=== PATIENT | male | born 1985 | race Caucasian/White ===

== ENCOUNTER 2017-10-20 15:39 | Emergency (ER) | payer OTHER ==
[~2017-10-20] VITALS: Ht 180.3 cm; Wt 97.5 kg
[~2017-10-20 15:39] MED LIST: FIORICET 50-301 EACH PO; FLEXERIL PO; IBUPROFEN 800800 M1 PO; IMITREX100 MG PO; NAPROSYN500 MG PO; NOHOMEMEDICATIONS; NORCO 5-325 TA1 EACH PO; TOPAMAX 25 MG T25 MG PO
[2017-10-20] MEDS ORDERED: CYCLOBENZAPRINE10 MG PO (17:06)
[2017-10-20] MEDS ORDERED: IBUPROFEN 800800 MG PO (17:06)
[2017-10-20 17:43] VITALS: BP 130/88
== END 2017-10-20 17:44 | disposition home or self-care (01) ==
LOC: M.ERS 15:39
DX: S29.012A Strain of muscle and tendon of back wall of thorax, initial encounter (principal); Z88.0 Allergy status to penicillin; V43.52XA Car driver injured in collision with other type car in traffic accident, initial encounter; Y93.I9 Activity, other involving external motion; Y92.89 Other specified places as the place of occurrence of the external cause; Y99.8 Other external cause status

== ENCOUNTER 2018-09-21 13:42 | Emergency (ER) | payer OTHER ==
[~2018-09-21] VITALS: Ht 180.3 cm; Wt 97.5 kg
[~2018-09-21 13:42] MED LIST changes: +CYCLOBENZAPRINE10 MG PO; +IBUPROFEN 800800 MG PO
[2018-09-21] MEDS ORDERED: NABUMETONE 750750 M1 PO (15:09)
[2018-09-21 15:25] VITALS: BP 105/68
== END 2018-09-21 15:26 | disposition home or self-care (01) ==
LOC: M.ERS 13:42
DX: M25.562 Pain in left knee (principal); R60.0 Localized edema; Z88.0 Allergy status to penicillin

== ENCOUNTER 2019-02-03 08:30 | Emergency (ER) | payer OTHER ==
[~2019-02-03] VITALS: Ht 180.3 cm; Wt 97.5 kg
[~2019-02-03 08:30] MED LIST changes: +NABUMETONE 750750 M1 PO
[2019-02-03] MEDS ORDERED: WELLBUTRIN XL300 MG PO (08:41)
[2019-02-03 09:21] LABS: ABSOLUTE EOSINOPHILS 0.1 thou/uL (0.0-0.7); ABSOLUTE LYMPHOCYTES 1.6 thou/uL (0.8-5.3); ABSOLUTE MONOCYTES 0.4 thou/uL (0.0-1.2); BASOPHILS 0.7 %; HEMATOCRIT 45.7 % (42.0-52.0); HEMOGLOBIN 15.2 gm/dL (14.0-18.0); LYMPHOCYTES 32.1 %; MCH 29.1 pg (26.0-34.0); MCHC 33.4 g/dL (28.0-37.0); MCV 87.3 fL (80.0-100.0); MONOCYTES 7.1 %; NUCLEATED RBCS 0 /100WBC; PLATELET COUNT* 239 thou/uL (150-400); POLYS 59.1 %; RBC 5.23 mil/uL (4.50-6.00); RDW-CV 13.3 % (10.5-14.5); WBC 5.1 thou/uL (4.0-11.0)
[2019-02-03 09:27] LABS: CALCIUM 9.3 mg/dL (8.5-10.1); CREATININE 0.9 mg/dL (0.6-1.3); POTASSIUM 4.4 mmol/L (3.5-5.1)
[2019-02-03 09:32] LABS: ALBUMIN 4.1 g/dL (3.4-5.0); TOTAL BILIRUBIN 0.3 mg/dL (<0.1-1.0); TOTAL PROTEIN 7.7 g/dL (6.4-8.2)
[2019-02-03] MEDS ORDERED: ATIVAN1 MG PO (09:54)
[2019-02-03 10:10] VITALS: BP 116/79
== END 2019-02-03 10:11 | disposition home or self-care (01) ==
LOC: M.ERS 08:30
PROVIDERS: Personal Emergency Response Attendant
DX: R25.1 Tremor, unspecified (principal); G43.909 Migraine, unspecified, not intractable, without status migrainosus; Z88.0 Allergy status to penicillin

== ENCOUNTER 2019-02-05 20:51 | Emergency (ER) | payer OTHER ==
[~2019-02-05] VITALS: Ht 180.3 cm; Wt 99.8 kg
[~2019-02-05 20:51] MED LIST changes: +ATIVAN1 MG PO; +WELLBUTRIN XL300 MG PO
[2019-02-05 21:40] LABS: ABSOLUTE EOSINOPHILS 0.1 thou/uL (0.0-0.7); ABSOLUTE LYMPHOCYTES 1.9 thou/uL (0.8-5.3); ABSOLUTE MONOCYTES 0.4 thou/uL (0.0-1.2); ABSOLUTE NEUTROPHILS 2.7 thou/uL (1.6-8.1); BASOPHILS 0.8 %; EOSINOPHILS 1.5 %; LYMPHOCYTES 37.5 %; MCH 29.7 pg (26.0-34.0); MCHC 34.1 g/dL (28.0-37.0); MCV 87.3 fL (80.0-100.0); MONOCYTES 7.8 %; NUCLEATED RBCS 0 /100WBC; PLATELET COUNT* 226 thou/uL (150-400); POLYS 52.4 %; RBC 5.04 mil/uL (4.50-6.00); RDW-CV 13.7 % (10.5-14.5); WBC 5.2 thou/uL (4.0-11.0)
[2019-02-05 21:44] LABS: POTASSIUM 3.5 mmol/L (3.5-5.1)
[2019-02-05 21:48] LABS: TOTAL BILIRUBIN 0.4 mg/dL (<0.1-1.0); TOTAL PROTEIN 7.5 g/dL (6.4-8.2)
[2019-02-05] MEDS ORDERED: ATIVAN1 MG PO (22:34)
[2019-02-05 22:47] VITALS: BP 101/70
== END 2019-02-05 22:48 | disposition home or self-care (01) ==
LOC: M.ERS 20:51
PROVIDERS: Family Medicine
DX: F41.9 Anxiety disorder, unspecified (principal); G43.909 Migraine, unspecified, not intractable, without status migrainosus; Z88.0 Allergy status to penicillin

== ENCOUNTER → 2019-02-11 | Outpatient (CLI) | payer OTHER | LOC: M.MRI 14:18 | DX: R25.1 Tremor, unspecified (principal); Z88.0 Allergy status to penicillin ==

== ENCOUNTER → 2019-02-15 | Outpatient (CLI) | payer OTHER | LOC: M.LAB 15:55 | DX: F41.9 Anxiety disorder, unspecified (principal); G43.919 Migraine, unspecified, intractable, without status migrainosus; R25.1 Tremor, unspecified ==

== ENCOUNTER → 2019-02-24 | Outpatient (CLI) | payer OTHER ==
--- NOTE | ~2019-02-24 | EEG ---
[address] [address] EEG STUDY REPORT Name: CARLOS FLORES [id number] Admission: 02/24/19 Attend Phys: Efrain Wyman MD Discharge: Date of : 89 Report #: [id number] THIS REPORT FOR: //name// CC: Laina Wyman DATE OF SERVICE: 02/24/2019 This patient is having migraine and tremors. The EEG is being done to further evaluate that. EEG was done by placing the electrodes by standard 10-20 system of electrode placement. Both referential and sequential montages were used for recording. Background activity in this patient's EEG is about 9 Hz and 30 microvolt. It is a symmetrical activity. Photic stimulation was unremarkable. The patient became drowsy and that is associated with bilateral slowing and vertex sharp waves. Throughout the record, no active epileptiform activity was noticed. IMPRESSION: This patient's EEG is unremarkable. Thank you very much for this referral. By: [id number] Wyman MD /nt
== END ==
LOC: M.CRD 14:00
DX: G43.919 Migraine, unspecified, intractable, without status migrainosus (principal); R25.1 Tremor, unspecified; F41.9 Anxiety disorder, unspecified

== ENCOUNTER 2019-04-25 18:14 | Emergency (ER) | payer OTHER ==
[~2019-04-25] VITALS: Ht 180.3 cm; Wt 97.5 kg
[~2019-04-25 18:14] MED LIST changes: +ACETAMINOPHEN-1 EAC1 PO; +BUTALB-APAP-CA1 EACH PO; +IMITREX 25 MG T25 M1 PO; +MEDROLDOSEPACK PO
[2019-04-25] MEDS ORDERED: MOBIC7.5 MG PO (21:23)
[2019-04-25 21:35] VITALS: BP 108/79
== END 2019-04-25 21:35 | disposition home or self-care (01) ==
LOC: M.ERS 18:14
DX: M54.5 Low back pain (principal); M25.552 Pain in left hip; G43.909 Migraine, unspecified, not intractable, without status migrainosus; Z88.0 Allergy status to penicillin

== ENCOUNTER 2019-06-13 18:24 | Inpatient (IN) | payer OTHER ==
[~2019-06-13] VITALS: Ht 180.3 cm; Wt 104.8 kg
[~2019-06-13 18:24] MED LIST changes: +MOBIC7.5 MG PO
[2019-06-13 18:34] VITALS: BP 113/82
[2019-06-13 19:25] LABS: ABSOLUTE EOSINOPHILS 0.1 thou/uL (0.0-0.7); ABSOLUTE LYMPHOCYTES 1.7 thou/uL (0.8-5.3); ABSOLUTE MONOCYTES 0.4 thou/uL (0.0-1.2); ABSOLUTE NEUTROPHILS 2.8 thou/uL (1.6-8.1); BASOPHILS 0.5 %; EOSINOPHILS 1.1 %; HEMATOCRIT 42.5 % (42.0-52.0); HEMOGLOBIN 14.6 gm/dL (14.0-18.0); LYMPHOCYTES 34.9 %; MCH 29.6 pg (26.0-34.0); MCHC 34.3 g/dL (28.0-37.0); MCV 86.4 fL (80.0-100.0); MONOCYTES 7.6 %; MPV 8.7 fl. (7.2-11.1); NUCLEATED RBCS 0 /100WBC; PLATELET COUNT* 252 thou/uL (150-400); POLYS 55.9 %; RBC 4.92 mil/uL (4.50-6.00); RDW-CV 13.5 % (10.5-14.5); WBC 4.9 thou/uL (4.0-11.0)
[2019-06-13 19:31] LABS: ANION GAP 10 mmol/L (7-16); BUN 8 mg/dL (7-18); CALCIUM 8.7 mg/dL (8.5-10.1); CHLORIDE 104 mmol/L (98-107); CO2 25 mmol/L (21-32); CREATININE 0.9 mg/dL (0.6-1.3); GLUCOSE 91 mg/dL (70-99); POTASSIUM 3.6 mmol/L (3.5-5.1); SODIUM 139 mmol/L (136-145)
[2019-06-13 19:40] LABS: ALBUMIN 3.8 g/dL (3.4-5.0); ALKALINE PHOSPHATASE 77 U/L (46-116); SGOT 22 U/L (15-37); SGPT 37 U/L (30-65); TOTAL BILIRUBIN 0.4 mg/dL (<0.1-1.0); TOTAL PROTEIN 7.2 g/dL (6.4-8.2); TROPONIN-I LEVEL <0.06 ng/mL (<0.06)
[2019-06-13 20:12] LABS: APTT 26.6 Seconds (25.0-31.3); PROTIME 10.7 Seconds (9.20-11.50)
[2019-06-13 22:01] VITALS: BP 117/69
[2019-06-13 22:20] VITALS: BP 115/68
[2019-06-13 22:24] LABS: URINE BILIRUBIN NEGATIVE (Negative); URINE BLOOD NEGATIVE (Negative); URINE CLARITY CLEAR; URINE COLOR YELLOW; URINE GLUCOSE-RANDOM NEGATIVE (Negative); URINE KETONES NEGATIVE (Negative); URINE LEUKOCYTES-REFLEX NEGATIVE (Negative); URINE NITRITE-REFLEX NEGATIVE (Negative); URINE PROTEIN NEGATIVE (Negative); URINE SPECIFIC GRAVITY <= 1.005 (1.005-1.030); URINE UROBILINOGEN 0.2 E.U./dl (0.2-1.0)
[2019-06-13 22:31] LABS: AMP/METHAMP Negative (Negative); BARBITURATES Negative (Negative); BENZODIAZEPINES Negative (Negative); COCAINE Negative (Negative); METHADONE Negative (Negative); OPIATES Negative (Negative); PCP Negative (Negative); THC Negative (Negative)
[2019-06-14] VITALS: BP 116/69
[2019-06-14 04:00] VITALS: BP 102/61
[2019-06-14 07:30] VITALS: BP 112/70
[2019-06-14 12:26] VITALS: BP 127/79
[2019-06-14 16:04] VITALS: BP 108/60
--- NOTE | 2019-06-14 17:07 | EKG ---
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 : 1985 Requested By: Eleuterio Fitch Order Number: [id number] MD: Meliton Powell Measurements Intervals [place] Rate: 65 P: 22 [place]: 173 QRS: 34 QRSD: 87 T: 24 QT: 386 QTc: 402 Interpretive Statements Sinus rhythm Baseline wander in lead(s) V5,V6 No previous ECG available for comparison Electronically Signed On 06-14-2019 17:06:57 CDT by Meliton Powell [email or web address] <ELECTRONICALLY SIGNED> By: Meliton Powell MD, [facility] 06/14/19 170 01 01 Meliton Powell MD, [facility] /EPI
--- NOTE | 2019-06-14 17:07 | EKG ---
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
[2019-06-14 20:00] VITALS: BP 108/71
[2019-06-15] VITALS: BP 94/65
[2019-06-15 04:00] VITALS: BP 100/62
[2019-06-15 05:35] LABS: ABSOLUTE EOSINOPHILS 0.1 thou/uL (0.0-0.7); ABSOLUTE MONOCYTES 0.4 thou/uL (0.0-1.2); ABSOLUTE NEUTROPHILS 2.7 thou/uL (1.6-8.1); BASOPHILS 0.4 %; EOSINOPHILS 1.9 %; HEMOGLOBIN 13.7 gm/dL (14.0-18.0); LYMPHOCYTES 38.3 %; MCH 29.9 pg (26.0-34.0); MCHC 34.3 g/dL (28.0-37.0); MCV 87.1 fL (80.0-100.0); MONOCYTES 7.7 %; MPV 9.4 fl. (7.2-11.1); NUCLEATED RBCS 0 /100WBC; PLATELET COUNT* 223 thou/uL (150-400); POLYS 51.7 %; RBC 4.59 mil/uL (4.50-6.00); RDW-CV 13.5 % (10.5-14.5); WBC 5.1 thou/uL (4.0-11.0)
[2019-06-15 06:20] LABS: ALBUMIN 3.5 g/dL (3.4-5.0); CALCIUM 8.8 mg/dL (8.5-10.1); TOTAL BILIRUBIN 0.3 mg/dL (<0.1-1.0); TOTAL PROTEIN 6.6 g/dL (6.4-8.2)
[2019-06-15 08:00] VITALS: BP 111/69
[2019-06-15 11:39] VITALS: BP 101/61
[2019-06-15] MEDS ORDERED: LEVAQUIN 500 M500 M2 PO (13:44)
[2019-06-15] MEDS ORDERED: COLACE100 MG PO (13:45)
[2019-06-15] MEDS ORDERED: MIRALAX17 GM PO (13:45)
[2019-06-15 13:54] VITALS: BP 101/61
== END 2019-06-15 14:30 | disposition home or self-care (01) | DRG 195 ==
LOC: M.ERS 18:24 → M.2W 21:28 → M.TBA-ER 21:28 → M.2W 21:54
PROVIDERS: Family Medicine; Personal Emergency Response Attendant; Physician Assistant; ADMIT Internal Medicine
DX: J18.0 Bronchopneumonia, unspecified organism (principal); G43.909 Migraine, unspecified, not intractable, without status migrainosus; K56.41 Fecal impaction; E66.01 Morbid (severe) obesity due to excess calories; Z53.21 Procedure and treatment not carried out due to patient leaving prior to being seen by health care provider; Z88.8 Allergy status to other drugs, medicaments and biological substances; Z88.0 Allergy status to penicillin; Z68.32 Body mass index [BMI] 32.0-32.9, adult

== ENCOUNTER → 2019-10-20 | Outpatient (CLI) | payer OTHER ==
[~2019-10-20] MED LIST changes: +COLACE100 MG PO; +LEVAQUIN 500 M500 M2 PO; +MIRALAX17 GM PO
== END ==
LOC: M.MRI 15:47
DX: M25.562 Pain in left knee (principal); G89.29 Other chronic pain

== ENCOUNTER 2020-07-20 16:03 | Observation (INO) | payer OTHER ==
[~2020-07-20] VITALS: Ht 180.3 cm; Wt 108.6 kg
[2020-07-20 16:07] VITALS: BP 124/85
[2020-07-20 17:04] LABS: ABSOLUTE LYMPHOCYTES 1.4 thou/uL (0.8-5.3); ABSOLUTE MONOCYTES 0.3 thou/uL (0.0-1.2); ABSOLUTE NEUTROPHILS 2.8 thou/uL (1.6-8.1); BASOPHILS 0.4 %; HEMATOCRIT 44.7 % (42.0-52.0); HEMOGLOBIN 14.9 gm/dL (14.0-18.0); LYMPHOCYTES 31.4 %; MCH 29.1 pg (26.0-34.0); MCHC 33.4 g/dL (28.0-37.0); MCV 87.1 fL (80.0-100.0); MONOCYTES 6.8 %; MPV 8.5 fl. (7.2-11.1); NUCLEATED RBCS 0 /100WBC; PLATELET COUNT* 225 thou/uL (150-400); POLYS 60.4 %; RBC 5.13 mil/uL (4.50-6.00); RDW-CV 13.5 % (10.5-14.5); WBC 4.6 thou/uL (4.0-11.0)
[2020-07-20 17:11] LABS: CALCIUM 8.8 mg/dL (8.5-10.1)
[2020-07-20 17:22] LABS: MAGNESIUM 1.9 mg/dL (1.8-2.4); TOTAL BILIRUBIN 0.4 mg/dL (<0.1-1.0); TOTAL PROTEIN 7.8 g/dL (6.4-8.2)
[2020-07-20 19:45] VITALS: BP 115/56
[2020-07-21] VITALS: BP 92/46
[2020-07-21 04:00] VITALS: BP 92/56
--- NOTE | 2020-07-21 04:50 | NUR ---
PATIENT ARRIVED ON UNIT AT APPROX 194. PATIENT ALERT AND ORIENTED TIMES FOUR. MINOR COMPLAINTS OF A HEADACHE. ORAL MEDS GIVEN. UP AD STELLA. NPO SINCE 0000. DRIER TENDER NAPHTHALENE AND HOURLY ROUNDING VCOMPLETED CHARTED.
[2020-07-21 07:55] VITALS: BP 92/65
[2020-07-21] MEDS ORDERED: AZITHROMYCIN 2250 MG PO (08:02)
[2020-07-21] MEDS ORDERED: OMEPRAZOLE40 MG PO (08:02)
[2020-07-21 08:05] LABS: CHOLESTEROL 121 mg/dL (<200); HDL CHOLESTEROL 22 mg/dL (>40); LDL CHOLESTEROL 68 mg/dL (<100); TC:HDL 5.5 Ratio (Not establshd); TRIGLYCERIDE 156 mg/dL (<150); VLDL 31 mg/dL (<40)
[2020-07-21 08:20] LABS: SERUM ASSESSMENT Clear
[2020-07-21 12:00] VITALS: BP 112/64
[2020-07-21 13:53] VITALS: BP 112/64
--- NOTE | 2020-07-21 14:50 | 2DMMODE ---
[place] [address] 2 D/M-MODE ECHOCARDIOGRAM Name: CARLOS FLORES Room: [address] Juan#: [id number] Admission: 07/20/20 Attend Phys: Rome Gusman, Discharge: Date of : 89 Date of Service: 07/21/20 1450 Report #: [id number] THIS REPORT FOR: cc: Laina Bishop Maggie M. DO Holkins, John M. MD [facility] ~ APPROVED REPORT Study performed: 07/21/2020 11:37:07 EXAM: Comprehensive 2D, Doppler, and color-flow Echocardiogram Patient Location: Bedside BSA: 2.27 HR: 65 bpm BP: 92/65 mmHg Other Information Study Quality: Good Indications Abnormal ECG Chest Pain 2D Dimensions IVSd: 13.56 (7-11mm) LVOT Diam: 18.37 (18-24mm) LVDd: 41.04 mm PWd: 11.10 (7-11mm) Ascending Ao: 25.74 (22-36mm) LVDs: 27.28 (25-40mm) Aortic Root: 28.99 mm Volumes Left Atrial Volume (Systole) LA ESV Index: 15.00 mL/m2 Aortic Valve AoV Peak Esvin.: 0.98 m/s AO Peak Gr.: 3.86 mmHg LVOT Max P.31 mmHg AO Mean Gr.: 2.28 mmHg LVOT Mean P.03 mmHg LVOT Max V: 0.76 m/s AO V2 VTI: 20.47 cm LVOT Mean V: 0.46 m/s TEZ (VTI): 2.05 cm2 LVOT V1 VTI: 15.83 [place] [address] 2 D/M-MODE ECHOCARDIOGRAM Name: CARLOS FLORES Room: [address]#: [id number] Admission: 07/20/20 Attend Phys: Rome Gusman, Discharge: Date of : 89 Date of Service: 07/21/20 1450 Report #: [id number] E/A Ratio: 1.54 MV Decel. Time: 238.27 ms MV E Max Esvin.: 0.54 m/s MV PHT: 69.10 ms MVA (PHT): 3.18 cm2 TDI E/Lateral E': 4.50 E/Medial E': 4.91 Medial E' Esvin.: 0.11 m/s Lateral E' Esvin.: 0.12 m/s Pulmonary Valve PV Peak Esvin.: 0.88 m/s PV Peak Gr.: 3.13 mmHg Tricuspid Valve RAP Estimate: 5.00 mmHg TR Peak Gr.: 19.53 mmHg RVSP: 24.53 mmHg PA Pressure: 24.53 mmHg Left Ventricle The left ventricle is normal size. There is normal LV segmental wall motion. There is normal left ventricular wall thickness. Left ventricular systolic function is normal. The left ventricular ejection fraction is within the normal range. LVEF is 55-60%. The left ventricular diastolic function is normal. Right Ventricle The right ventricle is normal size. The right ventricular systolic function is normal. Atria The left atrium size is normal. The right atrium size is normal. Aortic Valve The aortic valve is normal in structure. No aortic regurgitation is present. There is no aortic valvular stenosis. Mitral Valve The mitral valve is normal in structure. There is no mitral valve regurgitation noted. No evidence of mitral valve stenosis. Tricuspid Valve The tricuspid valve is normal in structure. Trace [place]icuspid [place] [address] 2 D/M-MODE ECHOCARDIOGRAM Name: CARLOS FLORES Room: [address]#: [id number] Admission: 07/20/20 Attend Phys: Rome Gusman, Discharge: Date of : 89 Date of Service: 07/21/20 1450 Report #: [id number] Pulmonic Valve The pulmonary valve is normal in structure. There is no pulmonic valvular regurgitation. Great Vessels The aortic root is normal in size. IVC is not visualized. Pericardium There is no pericardial effusion. <Conclusion> The left ventricle is normal size. There is normal left ventricular wall thickness. Left ventricular systolic function is normal. The left ventricular ejection fraction is within the normal range. LVEF is 55-60%. The left ventricular diastolic function is normal. The right ventricle is normal size. The left atrium size is normal. The aortic valve is normal in structure. The mitral valve is normal in structure. The tricuspid valve is normal in structure. There is no pericardial effusion. There is normal LV segmental wall motion. <ELECTRONICALLY SIGNED> By: Andrew Vallecillo MD, FACC 07/21/20 1450 1450 1450 Andrew Vallecillo MD, FACC /INF
--- NOTE | 2020-07-21 15:08 | EKG ---
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 : 1985 Requested By: Bautista Pina Order Number: [id number] Jodi MD: Andrew Vallecillo Measurements Intervals [place] Rate: 71 P: 20 [place]: 162 QRS: 21 QRSD: 92 T: 17 QT: 377 QTc: 410 Interpretive Statements Sinus rhythm Nonspecific T abnormalities, anterior leads consider ischemia Baseline wander in lead(s) I,III,aVR,aVL,aVF Compared to ECG 06/13/2019 19:36:58 T-wave abnormality now present Sinus bradycardia no longer present Electronically Signed On 07-21-2020 15:08:30 CDT by Andrew Vallecillo [email or web address] <ELECTRONICALLY SIGNED> By: Andrew Vallecillo MD, FACC 07/21/20 1508 11 11 Andrew Vallecillo MD, [facility] /EPI
--- NOTE | 2020-07-21 15:09 | EKG ---
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 : 1985 Requested By: Bautista Pina Order Number: [id number] MD: Andrew Vallecillo Measurements Intervals [place] Rate: 58 P: 9 [place]: 162 QRS: 7 QRSD: 91 T: 24 QT: 408 QTc: 401 Interpretive Statements Sinus rhythm Baseline wander in lead(s) I,II,aVR,aVF Compared to ECG 06/13/2019 19:36:58 Sinus bradycardia no longer present ST (T wave) deviation no longer present Electronically Signed On 07-21-2020 15:09:08 CDT by Andrew Vallecillo [email or web address] <ELECTRONICALLY SIGNED> By: Andrew Vallecillo MD, FACC 07/21/20 1509 1733 173 Andrew Vallecillo MD, FAC /EPI
--- NOTE | 2020-07-21 15:19 | NUR ---
ASSUMED CARE OF PT APPROX 0730. REASSESMENT COMPLETED CHARTED. MEDICATIONS GIVEN CHARTED. HOURLY ROUNDING. DISCUSSED PLAN FOR DISCHARGE WITH CARDIOLOGY. PT DISCHARGE TEACHING COMPLETED, PT VERBALIZED UNDERSTANDING. PT TAKEN TO VEHICLE BY STAFF.
== END 2020-07-21 15:10 | disposition home or self-care (01) ==
LOC: M.ERS 16:03 → M.2W 18:07 → M.TBA-ER 18:07 → M.2W 19:32
PROVIDERS: Emergency Medicine Emergency Medical Services; ADMIT Internal Medicine; ATTEND Internal Medicine
DX: R00.1 Bradycardia, unspecified (principal); R07.89 Other chest pain; G43.909 Migraine, unspecified, not intractable, without status migrainosus; E66.9 Obesity, unspecified; Z68.33 Body mass index [BMI] 33.0-33.9, adult; K21.9 Gastro-esophageal reflux disease without esophagitis; Z20.828 Contact with and (suspected) exposure to other viral communicable diseases; Z79.82 Long term (current) use of aspirin; Z79.899 Other long term (current) drug therapy

== ENCOUNTER → 2020-08-04 | Outpatient (CLI) | payer OTHER ==
[~2020-08-04] MED LIST changes: +AZITHROMYCIN 2250 MG PO; +OMEPRAZOLE40 MG PO
== END ==
LOC: M.ULTRA 08:49
PROVIDERS: ATTEND Family Medicine
DX: R10.11 Right upper quadrant pain (principal); K76.0 Fatty (change of) liver, not elsewhere classified

== ENCOUNTER → 2020-08-10 | Outpatient (CLI) | payer OTHER | LOC: M.NUC 07:05 | PROVIDERS: ATTEND Family Medicine | DX: K76.0 Fatty (change of) liver, not elsewhere classified (principal); K82.0 Obstruction of gallbladder ==

== ENCOUNTER 2020-10-17 18:57 | Emergency (ER) | payer OTHER ==
[~2020-10-17] VITALS: Ht 180.3 cm; Wt 97.5 kg
[2020-10-17 19:31] LABS: ABSOLUTE LYMPHOCYTES 1.6 thou/uL (0.8-5.3); ABSOLUTE MONOCYTES 0.4 thou/uL (0.0-1.2); ABSOLUTE NEUTROPHILS 3.1 thou/uL (1.6-8.1); BASOPHILS 0.4 %; EOSINOPHILS 0.4 %; HEMATOCRIT 45.4 % (42.0-52.0); HEMOGLOBIN 15.4 gm/dL (14.0-18.0); LYMPHOCYTES 30.9 %; MCH 29.5 pg (26.0-34.0); MCV 86.9 fL (80.0-100.0); MONOCYTES 7.8 %; MPV 8.5 fl. (7.2-11.1); NUCLEATED RBCS 0 /100WBC; PLATELET COUNT* 237 thou/uL (150-400); POLYS 60.5 %; RBC 5.22 mil/uL (4.50-6.00); WBC 5.1 thou/uL (4.0-11.0)
[2020-10-17 19:36] LABS: CALCIUM 9.1 mg/dL (8.5-10.1); POTASSIUM 3.7 mmol/L (3.5-5.1)
[2020-10-17 19:41] LABS: ALBUMIN 4.1 g/dL (3.4-5.0); TOTAL BILIRUBIN 0.5 mg/dL (<0.1-1.0); TOTAL PROTEIN 7.6 g/dL (6.4-8.2)
[2020-10-17] MEDS ORDERED: MEDROLDOSEPACK PO (20:20)
[2020-10-17 20:27] VITALS: BP 122/68
== END 2020-10-17 20:27 | disposition home or self-care (01) ==
LOC: M.ERS 18:57
PROVIDERS: Nurse Practitioner Family
DX: H92.02 Otalgia, left ear (principal); E66.9 Obesity, unspecified; G43.909 Migraine, unspecified, not intractable, without status migrainosus; Z88.6 Allergy status to analgesic agent; Z88.0 Allergy status to penicillin; Z88.5 Allergy status to narcotic agent; Z79.2 Long term (current) use of antibiotics; Z79.899 Other long term (current) drug therapy

== ENCOUNTER 2020-12-23 19:12 | Emergency (ER) | payer OTHER ==
[~2020-12-23] VITALS: Ht 180.3 cm; Wt 97.5 kg
[2020-12-23] MEDS ORDERED: AMITRIPTYLINE H50 M2 PO (19:28)
[2020-12-23] MEDS ORDERED: ZOLOFT50 M1 PO (19:29)
[2020-12-23] MEDS ORDERED: IBUPROFEN 600600 M1 PO (20:04)
[2020-12-23] MEDS ORDERED: APAP W/CODEINE1 TA2 PO (20:04)
[2020-12-23 20:26] VITALS: BP 133/80
== END 2020-12-23 20:26 | disposition home or self-care (01) ==
LOC: M.ERS 19:12
DX: M79.672 Pain in left foot (principal); G43.909 Migraine, unspecified, not intractable, without status migrainosus; E66.9 Obesity, unspecified; Z68.30 Body mass index [BMI] 30.0-30.9, adult

== ENCOUNTER 2021-01-23 18:32 | Emergency (ER) | payer OTHER ==
[~2021-01-23] VITALS: Ht 180.3 cm; Wt 104.3 kg
[~2021-01-23 18:32] MED LIST changes: +AMITRIPTYLINE H50 M2 PO; +APAP W/CODEINE1 TA2 PO; +IBUPROFEN 600600 M1 PO; +ZOLOFT50 M1 PO
[2021-01-23] MEDS ORDERED: IMITREX 25 MG T25 M1 PO (18:44)
[2021-01-23] MEDS ORDERED: IBUPROFEN 800800 M1 PO (20:03)
[2021-01-23] MEDS ORDERED: FLEXERIL PO (20:03)
[2021-01-23] MEDS ORDERED: NORCO5 PO (20:03)
[2021-01-23 20:31] VITALS: BP 124/84
== END 2021-01-23 20:32 | disposition home or self-care (01) ==
LOC: M.ERS 18:32
DX: S93.401A Sprain of unspecified ligament of right ankle, initial encounter (principal); S70.02XA Contusion of left hip, initial encounter; S70.01XA Contusion of right hip, initial encounter; S80.11XA Contusion of right lower leg, initial encounter; S39.82XA Other specified injuries of lower back, initial encounter; K56.41 Fecal impaction; G43.909 Migraine, unspecified, not intractable, without status migrainosus; E66.9 Obesity, unspecified; Z88.6 Allergy status to analgesic agent; Z88.0 Allergy status to penicillin; Z88.5 Allergy status to narcotic agent; Z79.899 Other long term (current) drug therapy; W10.8XXA Fall (on) (from) other stairs and steps, initial encounter; Y93.01 Activity, walking, marching and hiking; Y92.89 Other specified places as the place of occurrence of the external cause; Y99.9 Unspecified external cause status

== ENCOUNTER 2021-01-29 17:58 | Emergency (ER) | payer OTHER ==
[~2021-01-29] VITALS: Ht 180.3 cm; Wt 97.5 kg
[~2021-01-29 17:58] MED LIST changes: +NORCO5 PO
[2021-01-29] MEDS ORDERED: MEDROLDOSEPACK PO (20:10)
[2021-01-29] MEDS ORDERED: NORCO5 PO (20:10)
[2021-01-29 20:45] VITALS: BP 106/63
== END 2021-01-29 20:45 | disposition home or self-care (01) ==
LOC: M.ERS 17:58
DX: M51.36 Other intervertebral disc degeneration, lumbar region (principal); G43.909 Migraine, unspecified, not intractable, without status migrainosus; E66.9 Obesity, unspecified; Z68.30 Body mass index [BMI] 30.0-30.9, adult; Z88.5 Allergy status to narcotic agent; Z88.0 Allergy status to penicillin

== ENCOUNTER → 2021-02-12 | Outpatient (CLI) | payer OTHER | LOC: M.MRI 11:08 | PROVIDERS: ATTEND Family Medicine | DX: M51.26 Other intervertebral disc displacement, lumbar region (principal); M51.37 Other intervertebral disc degeneration, lumbosacral region ==

== ENCOUNTER → 2021-03-07 | Outpatient (CLI) | payer OTHER ==
[~2021-03-07] MED LIST changes: +HYDROCODON-ACE1 EAC7 PO; +INDOMETHACIN 2525 MG PO; +MELOXICAM15 MG PO; +ZOLOFT100 MG PO; -ZOLOFT50 M1 PO
== END ==
LOC: M.PC 09:28
PROVIDERS: ATTEND Physical Medicine & Rehabilitation
DX: M51.17 Intervertebral disc disorders with radiculopathy, lumbosacral region (principal); M48.07 Spinal stenosis, lumbosacral region; M79.661 Pain in right lower leg; M79.662 Pain in left lower leg; M47.27 Other spondylosis with radiculopathy, lumbosacral region; Z79.891 Long term (current) use of opiate analgesic; Z79.899 Other long term (current) drug therapy

== ENCOUNTER 2021-03-09 19:22 | Emergency (ER) | payer OTHER ==
[~2021-03-09] VITALS: Ht 180.3 cm; Wt 97.5 kg
[~2021-03-09 19:22] MED LIST changes: -INDOMETHACIN 2525 MG PO
[2021-03-09] MEDS ORDERED: MEDROLDOSEPACK PO (21:06)
[2021-03-09] MEDS ORDERED: INDOMETHACIN 2525 MG PO (21:06)
[2021-03-09 22:30] VITALS: BP 108/67
== END 2021-03-09 22:31 | disposition home or self-care (01) ==
LOC: M.ERS 19:22
DX: M54.5 Low back pain (principal); G43.909 Migraine, unspecified, not intractable, without status migrainosus; E66.9 Obesity, unspecified; Z88.5 Allergy status to narcotic agent; Z88.0 Allergy status to penicillin; Z88.8 Allergy status to other drugs, medicaments and biological substances; Z68.30 Body mass index [BMI] 30.0-30.9, adult

== ENCOUNTER → 2021-04-16 | Outpatient (CLI) | payer OTHER ==
[~2021-04-16] MED LIST changes: +INDOMETHACIN 2525 MG PO
== END ==
LOC: M.PC 08:53
PROVIDERS: ATTEND Physical Medicine & Rehabilitation
DX: M47.27 Other spondylosis with radiculopathy, lumbosacral region (principal); M51.17 Intervertebral disc disorders with radiculopathy, lumbosacral region; Z79.899 Other long term (current) drug therapy; Z79.891 Long term (current) use of opiate analgesic

== ENCOUNTER → 2021-05-02 | Outpatient (CLI) | payer OTHER | END | disposition home or self-care (01) | LOC: M.PC 09:54 | PROVIDERS: ATTEND Physical Medicine & Rehabilitation | DX: M54.5 Low back pain (principal); M54.16 Radiculopathy, lumbar region; M48.061 Spinal stenosis, lumbar region without neurogenic claudication; M79.605 Pain in left leg; G43.909 Migraine, unspecified, not intractable, without status migrainosus; F32.9 Major depressive disorder, single episode, unspecified; F41.9 Anxiety disorder, unspecified; K21.9 Gastro-esophageal reflux disease without esophagitis; Z98.890 Other specified postprocedural states; Z79.899 Other long term (current) drug therapy; Z88.0 Allergy status to penicillin; Z88.8 Allergy status to other drugs, medicaments and biological substances ==

== ENCOUNTER → 2021-05-16 | Outpatient (CLI) | payer OTHER | LOC: M.PC 09:45 | PROVIDERS: ATTEND Physical Medicine & Rehabilitation | DX: M51.37 Other intervertebral disc degeneration, lumbosacral region (principal); M48.07 Spinal stenosis, lumbosacral region; M47.27 Other spondylosis with radiculopathy, lumbosacral region; Z79.899 Other long term (current) drug therapy; Z79.891 Long term (current) use of opiate analgesic ==

== ENCOUNTER → 2021-06-18 | Outpatient (CLI) | payer OTHER | LOC: M.PC 09:03 | PROVIDERS: ATTEND Physical Medicine & Rehabilitation | DX: M47.26 Other spondylosis with radiculopathy, lumbar region (principal); M51.17 Intervertebral disc disorders with radiculopathy, lumbosacral region; M48.07 Spinal stenosis, lumbosacral region; M79.604 Pain in right leg; M79.605 Pain in left leg ==

== ENCOUNTER → 2021-06-25 | Outpatient (CLI) | payer OTHER | END | disposition home or self-care (01) | LOC: M.PC 09:22 | PROVIDERS: ATTEND Physical Medicine & Rehabilitation | DX: M54.5 Low back pain (principal); M51.16 Intervertebral disc disorders with radiculopathy, lumbar region; M47.26 Other spondylosis with radiculopathy, lumbar region; G43.909 Migraine, unspecified, not intractable, without status migrainosus; K21.9 Gastro-esophageal reflux disease without esophagitis; F32.9 Major depressive disorder, single episode, unspecified; F41.9 Anxiety disorder, unspecified; Z98.890 Other specified postprocedural states; Z79.899 Other long term (current) drug therapy; Z88.0 Allergy status to penicillin; Z88.8 Allergy status to other drugs, medicaments and biological substances ==

== ENCOUNTER → 2021-07-02 | Outpatient (CLI) | payer OTHER | LOC: M.PC 10:39 | PROVIDERS: ATTEND Physical Medicine & Rehabilitation | DX: M51.17 Intervertebral disc disorders with radiculopathy, lumbosacral region (principal); M48.07 Spinal stenosis, lumbosacral region; M47.26 Other spondylosis with radiculopathy, lumbar region; M79.604 Pain in right leg; M79.605 Pain in left leg ==

== ENCOUNTER 2021-07-28 19:33 | Emergency (ER) | payer OTHER ==
[~2021-07-28] VITALS: Ht 180.3 cm; Wt 104.3 kg
[2021-07-28] MEDS ORDERED: HYDROCODON-ACE1 EAC8 PO (20:01)
[2021-07-28] MEDS ORDERED: MEDROLDOSEPACK PO (20:05)
[2021-07-28 20:14] VITALS: BP 158/74
== END 2021-07-28 20:14 | disposition home or self-care (01) ==
LOC: M.ERS 19:33
DX: M54.50 Low back pain, unspecified (principal); G89.29 Other chronic pain; G43.909 Migraine, unspecified, not intractable, without status migrainosus; F32.9 Major depressive disorder, single episode, unspecified; E66.9 Obesity, unspecified; Z98.890 Other specified postprocedural states; Z79.899 Other long term (current) drug therapy; Z88.0 Allergy status to penicillin; Z88.5 Allergy status to narcotic agent

== ENCOUNTER → 2021-08-01 | Outpatient (CLI) | payer OTHER ==
[~2021-08-01] MED LIST changes: +HYDROCODON-ACE1 EAC8 PO
== END ==
LOC: M.PC 10:03
PROVIDERS: ATTEND Physical Medicine & Rehabilitation
DX: M51.16 Intervertebral disc disorders with radiculopathy, lumbar region (principal); M51.17 Intervertebral disc disorders with radiculopathy, lumbosacral region; M47.26 Other spondylosis with radiculopathy, lumbar region; Z88.0 Allergy status to penicillin

== ENCOUNTER → 2021-08-15 | Outpatient (CLI) | payer OTHER | LOC: M.MRI 10:35 | PROVIDERS: ATTEND Family Medicine | DX: M54.6 Pain in thoracic spine (principal) ==

== ENCOUNTER → 2021-09-24 | Outpatient (CLI) | payer OTHER | LOC: M.LAB 11:06 | PROVIDERS: ATTEND Physical Medicine & Rehabilitation | DX: Z01.812 Encounter for preprocedural laboratory examination (principal); Z20.822 Contact with and (suspected) exposure to COVID-19 ==

== ENCOUNTER → 2021-10-17 | Outpatient (CLI) | payer OTHER | LOC: M.PC 09:03 | PROVIDERS: ATTEND Physical Medicine & Rehabilitation | DX: M51.17 Intervertebral disc disorders with radiculopathy, lumbosacral region (principal); M47.816 Spondylosis without myelopathy or radiculopathy, lumbar region; M79.2 Neuralgia and neuritis, unspecified; M79.662 Pain in left lower leg; M79.661 Pain in right lower leg; Z88.0 Allergy status to penicillin ==